=== PATIENT | male | born 1940 | race Native Hawaiian/Other Pacific Islander ===

== ENCOUNTER 2017-03-01 08:05 | Inpatient (IN) | payer OTHER ==
[~2017-03-01] VITALS: Ht 172.7 cm; Wt 91.4 kg
[2017-03-01 08:20] VITALS: BP 157/104; TEMP 98.7
[2017-03-01] MEDS ORDERED: METFORMIN HCL500 M1 PO (08:37)
[2017-03-01] MEDS ORDERED: BRILINTA60 MG PO (08:39)
[2017-03-01] MEDS ORDERED: METO25TA4 OR (08:39)
[2017-03-01] MEDS ORDERED: LEVO0.0529 PO (08:39)
[2017-03-01] MEDS ORDERED: CLOP75TA2 PO (08:40)
[2017-03-01] MEDS ORDERED: PROTONIX20 MG PO (08:40)
[2017-03-01] MEDS ORDERED: GLIP10TA55 PO (08:41)
[2017-03-01] MEDS ORDERED: METO10IN2 PO (08:41)
[2017-03-01] MEDS ORDERED: LIPITOR40 MG PO (08:41)
[2017-03-01 08:52] LABS: PLATELET COUNT 187 K/uL (142-355)
[2017-03-01 14:46] VITALS: BP 185/104; TEMP 97.9; Ht 172.7 cm; Wt 91.4 kg
--- NOTE | 2017-03-01 15:52 | NUR ---
PT BACK FROM MRI AT THIS TIME.
[2017-03-01 16:00] VITALS: BP 183/96; TEMP 99.5
--- NOTE | 2017-03-01 16:12 | NUR ---
bp rechecked. 183/96. NOTIFIED. PT TO GET METOPROLOL.
--- NOTE | 2017-03-01 16:55 | NUR ---
CALLED TO PTS ROOM, PT C/O DIZZINESS AND WEAKNESS AT THIS TIME. BED IN LOWEST POSITION AND CALL LIGHT WITHIN REACH. MUNDO HARE INFORMED AND NEW ORDERS GIVEN FOR BP MED AT THIS TIME.
[2017-03-01 17:19] LABS: PARTIAL THROMBOPLASTIN TIME 26.1 SECONDS (24.5-33.6)
--- NOTE | 2017-03-01 18:15 | NUR ---
BP RECHECKED. 171/88 AT THIS TIME.
[2017-03-01 20:00] VITALS: BP 135/90; TEMP 98.4
[2017-03-02] VITALS (10 sets, daily range): BP systolic 136–204; BP diastolic 79–112; TEMP 98.2–98.6
[2017-03-02 05:03] LABS: PLATELET COUNT 167 K/uL (142-355)
[2017-03-02 05:05] LABS: POTASSIUM 3.8 mmol/L (3.6-5.2)
--- NOTE | 2017-03-02 13:45 | NUR ---
Pt. ATTEMPTING TO GET OUT OF BED. BED ALARM WENT OFF. TURN TO ASSIST Pt. TO US URINATE. P T. REFUSED AND BECOME COMBATIVE. Pt. PULLED IV OUT. STARTED SWING. STATED I WILL HIT YOU IN YOUR FACE. Pt. ATTEMPTED TO SWING TELEMETRY. MELIDA ENCINAS CAME ASSIST HELP ASSIST Pt. BACK TO BED.
--- NOTE | 2017-03-02 14:10 | NUR ---
IN TO SEE PATIENT. PT NOT IN ROOM. BED ALARM PREVIOUSLY SET NOT ACTIVATED AT THIS TIME. PT WANDERED FROM BUILDING OUT EXIT. CODE X CALLED AND PATIENT FOUND OUT [facility]ILD[facility]. PATIENT RETURNED TO PATIENT ROOM VIA MYSELF AND MULTIPLE STAFF MEMBERS. PATIENT WALKED WELL TO ROOM. PT CONFUSED PLACE, TIME, SITUATION. WANDER GUARD BRACELET PLACED ON PATIENT. BED ALARM SET. WILL CALL FAMILY MEMBERS TO COME SIT WITH PATIENT.
[2017-03-02] MEDS ORDERED: FINA5TAB2 PO (17:08)
[2017-03-02] MEDS ORDERED: CETIRIZINE10 MG PO (17:09)
[2017-03-02] MEDS ORDERED: CLOP75TA2 PO (17:12)
[2017-03-02] MEDS ORDERED: GABA400C2 PO (17:14)
[2017-03-02] MEDS ORDERED: METO25TA2 PO (17:15)
[2017-03-02] MEDS ORDERED: LISI5TAB10 PO (17:16)
[2017-03-02] MEDS ORDERED: ZOFRAN8 MG PO (17:17)
[2017-03-02] MEDS ORDERED: GABA100C2 PO (17:19)
--- NOTE | 2017-03-02 18:45 | NUR ---
PATIENT ARRIVED TO PCU BED 2 AT THIS TIME BY WHEEL CHAIR AND WAS ACCOMPANIED BY MIS ENCINAS RN. PATIET WAS ASSISTED INTO BED AND PLACED ON MONITORING EQUIPMENT. PATIENT REPORT RECIEVED FROM MIS AT BEDSIDE. PATIENT IS ALERT BUT CONFUSED WITHOUT COMPLAINTS. IV 20GA RIGHT AC NS @ 100ML/HR.
--- NOTE | 2017-03-02 19:15 | NUR ---
FAMILY MEMBERS ARE AT BEDSIDE. PHONE NUMBERS PROVIDED TO NURSE IN CASE NEEDED THROUGHOUT THE NIGHT.
--- NOTE | 2017-03-02 20:30 | NUR ---
PATIENT ASLEEP AT THIS TIME. NO ACUTE DISTRESS NOTED.
--- NOTE | 2017-03-02 23:43 | NUR ---
patient asleep and awake to voice. no acute distress noted
[2017-03-03] VITALS (25 sets, daily range): BP systolic 123–188; BP diastolic 70–102; TEMP 97.9–98.7
--- NOTE | 2017-03-03 01:33 | NUR ---
PATIENT IS ASLEEP AND AWAKE TO VOICE. NO COMPLAINTS OR ACUTE DISTRES NOTED
--- NOTE | 2017-03-03 06:00 | NUR ---
MORNING LABS DRAWN FRON RIGHT HAND WITHOUT COMPLICATION. PATIENT ASSISTED TO BEDSIDE COMODE. CHUCKS CHANGED PRIOR TO PATIENT RETURN TO BED. NO DISTRESS NOTED OR COMPLAINTS.
[2017-03-03 06:45] LABS: PLATELET COUNT 157 K/uL (142-355)
--- NOTE | 2017-03-03 07:30 | NUR ---
AM ASSESSMENT DONE. WILL CONTINUE TO MONITOR.
--- NOTE | 2017-03-03 08:54 | NUR ---
PT STATED HE WASN'T READY FOR BREAKFAST AT THIS TIME. WILL HOLD TRAY.
--- NOTE | 2017-03-03 09:00 | NUR ---
PT RESTING QUIETLY WITH EYES CLOSED. WILL CONTINUE TO MONITOR.
--- NOTE | 2017-03-03 10:00 | NUR ---
FAMILY AT BEDSIDE. PT AWAKE. PT ATE 10% OF BREAKFAST.
--- NOTE | 2017-03-03 10:26 | NUR ---
DR. STARR HERE TO SEE PT.
--- NOTE | 2017-03-03 10:45 | NUR ---
ASSISTED PT UP TO BSC. PT VOIDED 150ML URINE.
--- NOTE | 2017-03-03 12:00 | NUR ---
PT DENIES ANY CHEST PAIN. PT C/O ASTORGA. FAMILY AT BEDSIDE.
--- NOTE | 2017-03-03 12:30 | NUR ---
PT DOES NOT WANT TO EAT. PT DRANK 1/2 CAN OF ENSURE.
--- NOTE | 2017-03-03 14:53 | NUR ---
DR. RAMIREZ HERE TO SEE PT.
--- NOTE | 2017-03-03 15:08 | NUR ---
PT SITTING UP EATING LUNCH.
--- NOTE | 2017-03-03 15:30 | NUR ---
PT ATE 100%.
--- NOTE | 2017-03-03 17:17 | NUR ---
PT RESTING QUIETLY WITH EYES CLOSED. WILL CONTINUE TO MONITOR.
--- NOTE | 2017-03-03 18:01 | NUR ---
PT DENIES ANY CHEST PAIN OR ASTORGA. WILL HOLD NITROPASTE.
--- NOTE | 2017-03-03 19:17 | NUR ---
Received pt resting in bed quietly. No distress noted. VSS per monitor. Assessment completed at this time. Lungs clear to auscultation. Denies chest pain at this time. Resp even and non labored. Bed in lowest position. Call light within reach. Will continue to monitor.
--- NOTE | 2017-03-03 21:31 | NUR ---
Pt resting in bed. Alert and oriented at this time. No distress noted. Denies pain. Will continue to monitor.
--- NOTE | 2017-03-03 23:42 | NUR ---
Held Nitro paste. Denies chest pain and states it gives headache.
[2017-03-04] VITALS (22 sets, daily range): BP systolic 127–190; BP diastolic 78–111; TEMP 97.4–98.1
--- NOTE | 2017-03-04 03:00 | NUR ---
Pt up to BSC at this time. Denies pain. No distress noted. VSS per monitor.
[2017-03-04 05:39] LABS: POTASSIUM 3.8 mmol/L (3.6-5.2)
[2017-03-04 05:53] LABS: PLATELET COUNT 154 K/uL (142-355)
--- NOTE | 2017-03-04 07:30 | NUR ---
AM ASSESSMENT COMPLETE
--- NOTE | 2017-03-04 08:00 | NUR ---
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
--- NOTE | 2017-03-04 09:00 | NUR ---
PT UP TO BSC, NO ASSIST NEEDED. PT ALSO STATED THAT HE WAS NOT A BIG BREAKFAST EATER. HOWEVER, PT ATE 1 SAUSAGE LINK, HALF PIECE OF TOAST, SMALL AMT OF GRITS AND EGGS. DRANK 1/4 CUP OF COFFEE AND SOME JUICE. STATES THAT HE LIKES WATER
--- NOTE | 2017-03-04 11:10 | NUR ---
OBED CORADO IN TO SEE PT, PT RECOGNIZED NURSE AND APOLOGIZED FOR PREVIOUS BEHAVIOR, STATES THAT HE DIDNT KNOW WHAT HAPPENED OR WHY HE WAS SO MEAN
--- NOTE | 2017-03-04 11:30 | NUR ---
PT USED CALL LIGHT FOR ASSIST, STATES THAT HE NEEDS TO PEE. PT DISCONNECTED FROM MONITORING EQUIP, PT ABLE TO GET UP W/O ASSIST. PT SITS ON BSC TO VOID, TOLERATED WELL.
--- NOTE | 2017-03-04 11:45 | NUR ---
AND TWO DAUGHTERS AT BS
--- NOTE | 2017-03-04 13:00 | NUR ---
PTS BP INCREASED 182/111, DR STARR INFORMED AND ORDER RECIEVED
--- NOTE | 2017-03-04 13:39 | NUR ---
BP DECREASED 171/98, PT RESTING AT THIS TIME, NO FAMILY AT BS
--- NOTE | 2017-03-04 15:07 | NUR ---
FAMILY AT BS
--- NOTE | 2017-03-04 15:50 | NUR ---
PT GIVEN BATH
--- NOTE | 2017-03-04 16:00 | NUR ---
PTS GAIT IS UNSTEADY WHEN WALKING, MOVING FROM BED TO BSC PT IS STEADY.
--- NOTE | 2017-03-04 16:05 | NUR ---
PT TAKEN OUT OF PCU VIA W/C TO SEE DAYLIGHT.
--- NOTE | 2017-03-04 16:45 | NUR ---
BED LINEN CHANGED. PT ASSISTED BACK TO BED. PT ABLE TO RECALL NIGHTSHIFT NURSE.
--- NOTE | 2017-03-04 18:00 | NUR ---
ALERT AND ORIENTED TO TIME, MONTH, YEAR, PLACE. PLEASANT. IV SITES PATENT, VOIDS PER BSC. ABLE TO FEED SELF
--- NOTE | 2017-03-04 19:00 | NUR ---
BEDSIDE REPORT RECEIVED FROM POLI BHAKTA RN.
--- NOTE | 2017-03-04 21:00 | NUR ---
pt talking with nurse. Pt coherent, pt laughing and appropriate in all questions and answers.
--- NOTE | 2017-03-04 22:20 | NUR ---
PT C/O HEADACHE. PAIN SCALE 8. MEDICATED WITH TYLENOL 650MG PO ORDERED.
--- NOTE | 2017-03-04 23:14 | NUR ---
pt resting with eyes closed at present.
[2017-03-05] VITALS (18 sets, daily range): BP systolic 129–199; BP diastolic 78–110; TEMP 97.3–97.9
--- NOTE | 2017-03-05 00:38 | NUR ---
PT C/O SEVERE HEADACHE. PAIN SCALE 8. MEDICATED WITH MORPHINE 2MG IV ORDERED.
--- NOTE | 2017-03-05 02:06 | NUR ---
pt resting quietly wth eyes closed past morphine.
--- NOTE | 2017-03-05 02:28 | NUR ---
pt c/o headache. given tylenol 650mg po
--- NOTE | 2017-03-05 02:44 | NUR ---
pt awake. talking with nurse. states he thinks a cup of coffee may help his headache. cup of coffee given.
--- NOTE | 2017-03-05 05:43 | NUR ---
LABS DRAWN. TO LAB. PT TOLERATED WELL.
[2017-03-05 06:38] LABS: POTASSIUM 3.9 mmol/L (3.6-5.2)
--- NOTE | 2017-03-05 07:00 | NUR ---
REPORT FROM PM STAFF PT AWAKE,ALERT,ORIENTED TO SELF,FAMILY & PLACE.PLEASANT.
[2017-03-05 07:31] LABS: PLATELET COUNT 141 K/uL (142-355)
--- NOTE | 2017-03-05 08:00 | NUR ---
PT UP TO BSC,UNSTEADY,VOIDED 200ML CL YELLOW URINE.
--- NOTE | 2017-03-05 08:52 | NUR ---
ANANYA SINHA RAILROAD HAND IN TO SEE PT. DISCUSSED PT'S ASTORGA & BP. NEW ORDERS.
--- NOTE | 2017-03-05 09:25 | NUR ---
PT C/O ASTORGA # 10 & NAUSEA,MEDICATED WITH ZOFAN 4 MG IV & FIORCET [address]S ORDER. AT BS.
--- NOTE | 2017-03-05 10:30 | NUR ---
PT ON L SIDE WITH HOB UP. EYES CLOSED. NO C/O.
--- NOTE | 2017-03-05 12:29 | NUR ---
PT CONTINUES TO HAVE A ASTORGA # 6 WITH A BP UP TO 198/110,REMAINS NAUSEATED BUT BETTER THAN THIS AM. REPORTED TO CAILIN PICHARDO RN/TREVON/DR SOSA.
--- NOTE | 2017-03-05 13:12 | NUR ---
PT FEEDING SELF LUNCH. FRIEND AT BS.ASTORGA & NAUSEA 'BETTER'.
--- NOTE | 2017-03-05 15:33 | NUR ---
DR SOSA IN TO SEE PT . REVIEWED MEDS & BP'S NEW ORDERS. PT PAIN FREE ,NO MORE ASTORGA.
--- NOTE | 2017-03-05 16:45 | NUR ---
PT RESTING QUIETLY WITH EYES CLOSED.
--- NOTE | 2017-03-05 18:16 | NUR ---
PT IUPSET,AGGITATED WITH DAUGHTERS,WEANTS TO 'GO HOME',PULLEDOUT BOTH IV'S THREATENED ONE DAUGHTER & 'HESNEVER DONE THAT BEFORE'.DR STARR NOTIFIED.NEW ORDERS.
--- NOTE | 2017-03-05 18:41 | NUR ---
PT MEDICATED WITH GEODON 20 MG IM R HIP X 1 . FAMILY BACK IN TO VISIT. DR STARR AWARE OF BP. REPORT TO PM STAFF.
--- NOTE | 2017-03-05 20:00 | NUR ---
PM ASSESSMENT COMPLETED. PT CONFUSED. STATES "I WANT TO GO HOME" "MY HAS LEFT ME UP HERE". ATTEMPT TO REORIENT PT. PT IS CALM AND SAT IN A WHEELCHAIR AND STARTED WHEELING HIMSELF AROUND IN ICU AREA. PT WAS ASSISTED TO BR AND HE VOIDED IN TOILET.
[2017-03-06] VITALS (11 sets, daily range): BP systolic 121–193; BP diastolic 74–105; TEMP 97.3–98.1
--- NOTE | 2017-03-06 01:26 | NUR ---
PT UP OUT OF BED TO URINATE. PT WAS ENCOUARGED TO DRINK FLUIDS. PT WAS GIVEN SNACK.
--- NOTE | 2017-03-06 01:28 | NUR ---
PT DID TAKE ALL PO PM MEDICATIONS.
--- NOTE | 2017-03-06 03:57 | NUR ---
PT RESTING QUIETLY. BLOOD PRESSURE IS NOW 125/78. HR 82.
[2017-03-06 06:06] LABS: PLATELET COUNT 148 K/uL (142-355)
--- NOTE | 2017-03-06 07:00 | NUR ---
REPORT FROM PM STAFF. PT RESTED WITH MINIMAL C/O. NO MORE AGGRESSION OR AGGITATION.
--- NOTE | 2017-03-06 07:45 | NUR ---
PT'S DAUGHTER IN TO SEE PT BRIEFLY. WOULD LIKE THE DR TO CALL HER TODAY AFTER SEEING PT.
--- NOTE | 2017-03-06 09:10 | NUR ---
DR ESCALANTE,ANANYA SINHA APRN, AT ,ROUNDS MADE. DR ESCALANTE TO CALL PT'S DAUGHTER FEI HERNDON.
--- NOTE | 2017-03-06 10:20 | NUR ---
THALIA JI RN CALLED FROM [facility] CALLED FOR REPORT ON PT. REPORT GIVEN. WILL WAIT UNTIL PT AWAKE BEFORE D/CING PT TO [facility].
--- NOTE | 2017-03-06 10:40 | NUR ---
PT AWAKE,VOIDED 400ML MED YELLOW URINE. REFUSED TO EAT OR DRINK,'I THINK I'LL JUST LAY BACK DOWN FOR A WHILE'.
--- NOTE | 2017-03-06 11:09 | NUR ---
MAGDALENE GODOY RN CALLED FROM [facility],WILL WAIT UNTIL AFTE [facility] TO GET PT. PT AWAKE & REATING QUIETLY.
--- NOTE | 2017-03-06 11:23 | NUR ---
DAUGHTER CALLED TO CK ON PT. EXPLAINED TO PT ABOUT [facility]HU ADMISSION. DAUGHTER OK WITH THAT. DAUGHTER WILL EXPLAIN ADMISSION TO BHU TO PT'S .
--- NOTE | 2017-03-06 12:30 | NUR ---
PT FED SELF 25% OF MEAL,DRANK 1/2 OF AN ENSURE . REFUSES A BATH AT THIS TIME.
--- NOTE | 2017-03-06 13:50 | NUR ---
PT CALM.ASSITED TO W/C,TRANSFERRED STABLE TO [facility] PER U STAFF FOR ADMISSION. FAMILY NOTIFIED.
== END 2017-03-06 13:50 | disposition other institution (70) | DRG 57 ==
LOC: ED 08:05 → MED/SURG 10:10 → ICU 03-02 18:45
PROVIDERS: ADMIT Family Medicine
DX: G31.84 Mild cognitive impairment of uncertain or unknown etiology (principal); F01.51 Vascular dementia, unspecified severity, with behavioral disturbance; R41.82 Altered mental status, unspecified; R07.89 Other chest pain; H81.09 Meniere's disease, unspecified ear; R53.1 Weakness; I10 Essential (primary) hypertension; N18.3 Chronic kidney disease, stage 3 (moderate); E78.4 Other hyperlipidemia; E11.40 Type 2 diabetes mellitus with diabetic neuropathy, unspecified; R51 Headache; Z72.0 Tobacco use; E03.8 Other specified hypothyroidism; I12.9 Hypertensive chronic kidney disease with stage 1 through stage 4 chronic kidney disease, or unspecified chronic kidney disease; E11.22 Type 2 diabetes mellitus with diabetic chronic kidney disease; F22 Delusional disorders
CPT/HCPCS: 36415; 36591; 80053; 81000; 82550; 82607; 82746; 82962; 83880; 84443; 84484; 85027; 85610; 85730; 86592; 87081; 93005; 96360; 96365; 96366; 96372; 99284; J1650; J2270; J2405; J3486

== ENCOUNTER 2017-03-19 13:18 | Outpatient (CLI) | payer OTHER ==
[~2017-03-19 13:18] MED LIST: BRILINTA60 MG PO; CETIRIZINE10 MG PO; CLOP75TA2 PO; FINA5TAB2 PO; GABA100C2 PO; GABA400C2 PO; GLIP10TA55 PO; LEVO0.0529 PO; LIPITOR40 MG PO; LISI5TAB10 PO; METFORMIN HCL500 M1 PO; METO10IN2 PO; METO25TA2 PO; METO25TA4 OR; PROTONIX20 MG PO; ZOFRAN8 MG PO
== END 2017-03-19 14:20 | disposition home or self-care (01) ==
LOC: RAD 13:18
DX: R06.2 Wheezing (principal); R05 Cough

== ENCOUNTER 2017-07-30 08:54 | Outpatient (CLI) | payer OTHER | END 2017-07-30 20:04 | disposition home or self-care (01) | LOC: RAD 08:54 | DX: M54.5 Low back pain (principal) ==

== ENCOUNTER 2017-08-28 09:20 | Outpatient (CLI) | payer OTHER | END 2017-08-28 22:54 | disposition home or self-care (01) | LOC: MRI 09:20 | DX: M54.41 Lumbago with sciatica, right side (principal) ==

== ENCOUNTER 2018-04-10 10:20 | Outpatient (CLI) | payer OTHER | END 2018-04-10 20:31 | disposition home or self-care (01) | LOC: LAB 10:20 | DX: R82.90 Unspecified abnormal findings in urine (principal) | CPT/HCPCS: 81000; 87077; 87086; 87088; 87185; 87186 ==

== ENCOUNTER 2018-04-14 10:33 | Emergency (ER) | payer OTHER ==
[~2018-04-14] VITALS: Ht 172.7 cm; Wt 90.7 kg
[2018-04-14 12:01] LABS: PLATELET COUNT 172 K/uL (142-355)
[2018-04-14 12:10] LABS: POTASSIUM 5.1 mmol/L (3.6-5.2)
[2018-04-14 13:05] VITALS: BP 155/96; TEMP 97.8
== END 2018-04-14 13:13 | disposition home or self-care (01) ==
LOC: ED 10:33
PROVIDERS: Family Medicine
DX: N39.0 Urinary tract infection, site not specified (principal)
CPT/HCPCS: 36415; 80053; 81000; 85027; 99283

== ENCOUNTER 2018-04-19 13:48 | Outpatient (CLI) | payer OTHER | END 2018-04-19 19:19 | disposition home or self-care (01) | LOC: RESP 13:48 | DX: R55 Syncope and collapse (principal) ==

== ENCOUNTER 2018-07-03 10:50 | Outpatient (CLI) | payer OTHER | END 2018-07-03 23:03 | disposition home or self-care (01) | LOC: LAB 10:50 | DX: N39.0 Urinary tract infection, site not specified (principal) | CPT/HCPCS: 81000 ==

== ENCOUNTER 2018-08-29 10:00 | Outpatient (CLI) | payer OTHER | END 2018-08-29 20:46 | disposition home or self-care (01) | LOC: LAB 10:00 | DX: N39.0 Urinary tract infection, site not specified (principal) | CPT/HCPCS: 81000; 87077; 87086; 87088; 87185 ==